=== PATIENT | female | born 1965 | race Caucasian/White ===

== ENCOUNTER 2017-11-13 17:50 | Emergency (ER) | payer MEDICAID ==
[~2017-11-13] VITALS: Ht 152.4 cm; Wt 67.2 kg
[~2017-11-13 17:50] MED LIST: GLU500 PO; GLYB5TAB14 PO; LISI2.5T12 PO
[2017-11-13 18:40] VITALS: BP 151/76
[2017-11-13] MEDS ORDERED: LISI-424 PO (18:47)
[2017-11-13] MEDS ORDERED: GLYB2.5T9 PO (18:47)
[2017-11-13] MEDS ORDERED: SYN.05 PO (18:47)
[2017-11-13] MEDS ORDERED: cefTRIAXone 1,000 MG in LIDOCAINE MPF 1% - **ER/OR** 2.1 ML IM ONE (20:55)
--- NOTE | 2017-11-13 20:58 | NUR ---
PT MOVED TO BED 12
--- NOTE | 2017-11-13 20:58 | NUR ---
52Y F BIB FAMILY C/O RIGHT SIDED LOWER BACK PAIN X 2 DAYS----PT STATES STRAINED BACK MOVING HER 19YR OLD SPECIAL NEEDS SON DENIES DYSURIA, DENIES INCONTINENCE, AMBULATORY WITH SLOW STEADY GAIT HX---DM, HTN, THYROID RX---LISINOPRIL,METFORMIN, GLYBURIDE, SYNTHROID
--- NOTE | 2017-11-13 21:00 | NUR ---
Patient being evaluated by physician at bedside.
[2017-11-13 21:37] VITALS: BP 150/72
--- NOTE | 2017-11-13 22:01 | NUR ---
Patient discharged with v/s stable. Written and verbal after care instructions given and explained BY DR. DELEON Patient alert, oriented and verbalized understanding of instructions. Ambulatory with steady gait. All questions addressed prior to discharge. ID band removed. Patient advised to follow up with PMD Rx of TYLENOL EXTRA STRENGTH 500 MG AND CIPROFLOXACIN [address] DELEON. Patient educated on indication of medication including possible reaction and side effects BY DR. DELEON.Opportunity to ask questions provided and answered.
== END 2017-11-13 22:01 | disposition home or self-care (01) ==
LOC: MED 17:50
DX: N12 Tubulo-interstitial nephritis, not specified as acute or chronic (principal); E11.9 Type 2 diabetes mellitus without complications; I10 Essential (primary) hypertension; Z79.899 Other long term (current) drug therapy; Z79.84 Long term (current) use of oral hypoglycemic drugs
CPT/HCPCS: 81002; 96372; 99283; J0696; J2001

== ENCOUNTER 2021-04-30 09:34 | Emergency (ER) | payer MEDICAID ==
[~2021-04-30] VITALS: Ht 160 cm; Wt 65.8 kg
[~2021-04-30 09:34] MED LIST changes: +GLYB2.5T9 PO; -GLYB5TAB14 PO; +LISI-648 PO; -LISI2.5T12 PO; +SYN.05 PO
[2021-04-30 09:39] VITALS: BP 133/65
[2021-04-30] MEDS ORDERED: NAPR-54 PO (12:06)
== END 2021-04-30 12:13 | disposition home or self-care (01) ==
LOC: MED 09:34
DX: M65.221 Calcific tendinitis, right upper arm (principal); E11.9 Type 2 diabetes mellitus without complications; I10 Essential (primary) hypertension; Z79.84 Long term (current) use of oral hypoglycemic drugs; Z79.899 Other long term (current) drug therapy
CPT/HCPCS: 73030; 73080; 73090; 99284

== ENCOUNTER 2021-07-18 16:12 | Emergency (ER) | payer MEDICAID ==
[~2021-07-18 16:12] MED LIST changes: -LISI-648 PO; +LISI5TAB24 PO; +NAPR-54 PO
== END 2021-07-18 17:55 | disposition home or self-care (01) ==
LOC: MED 16:12
DX: N39.0 Urinary tract infection, site not specified (principal); Z53.21 Procedure and treatment not carried out due to patient leaving prior to being seen by health care provider